=== PATIENT | female | born 1955 | race American Indian/Alaskan Native ===

== ENCOUNTER 2020-03-27 09:43 | Outpatient (CLI) | payer OTHER ==
[2020-03-27 10:47] LABS: Hematocrit 38.6 % (30.3-42.9); Hemoglobin 12.5 gm/dl (10.1-14.3); Mean Corpuscular HGB Conc 33 % (30-34); Mean Corpuscular Volume 81 fl (79-97); Platelet Count 368 K/mm3 (140-440); Red Blood Count 4.78 M/mm3 (3.65-5.03)
[2020-03-27 11:05] LABS: ABG Base Excess 3.4 mmol/L (-2.0-3.0); ABG HCO3 27.6 mmol/L (20.0-26.0); ABG Methemoglobin 0.6 % (0.0-1.5); ABG Oxygen Saturation 97.1 % (95.0-99.0); ABG PCO2 40.7 mm Hg; ABG PH 7.449 pH Units (7.350-7.450); ABG PO2 85.8 mm Hg (80.0-90.0)
[2020-03-27 11:10] LABS: Alanine Aminotransferase 17 units/L (7-56); Albumin 4.1 g/dL (3.9-5); Blood Urea Nitrogen 12 mg/dL (7-17); Calcium 10.5 mg/dL (8.4-10.2); Chol/HDL Ratio 2.04 %; HDL Cholesterol 89 mg/dL (40-59); Hemolysis Index 3; LDL Cholesterol,Direct 86 mg/dL (50-130)
[2020-03-27 11:14] LABS: BUN/Creatinine Ratio 17
--- NOTE | 2020-03-27 11:59 | Cat Scan Report ---
CT CHEST WITH CONTRAST INDICATION / CLINICAL INFORMATION: Cough, shortness of breath, scar on lung per x-ray. TECHNIQUE: Axial CT images were obtained through the chest after 100 cc Omnipaque 300 IV contrast. Sagittal and coronal reformatted images. All CT scans at this location are performed using CT dose reduction for A TULIO by means of automated exposure control. COMPARISON: None available. FINDINGS: HEART: No significant abnormality. THORACIC AORTA: No significant abnormality. MEDIASTINUM and ELISA: No significant abnormality. LUNGS: No acute air space or interstitial disease. PLEURA: No significant pleural effusion. No pneumothorax. SKELETAL SYSTEM: Mild thoracic spondylosis. No fracture or suspicious bony lesion. UPPER ABDOMEN: Fatty infiltration is noted in the visualized liver. ADDITIONAL FINDINGS: None. IMPRESSION: Unremarkable CT chest with contrast. Hepatic steatosis. Signer Name: Gabriele Sorto Jr, MD Signed: 03/27/2020 11:55 AM Workstation Name: [id number]
== END 2020-03-27 09:44 | disposition home or self-care (01) ==
LOC: CT 09:43
PROVIDERS: ATTEND Internal Medicine
DX: M47.814 Spondylosis without myelopathy or radiculopathy, thoracic region (principal); J30.9 Allergic rhinitis, unspecified; J32.9 Chronic sinusitis, unspecified; K76.0 Fatty (change of) liver, not elsewhere classified; I10 Essential (primary) hypertension; E78.00 Pure hypercholesterolemia, unspecified; Z68.36 Body mass index [BMI] 36.0-36.9, adult; Z87.01 Personal history of pneumonia (recurrent)
CPT/HCPCS: 36415; 71260; 80053; 80061; 82785; 82803; 84436; 84443; 85027; Q9967